=== PATIENT | male | born 1975 | race Two or more races ===

== ENCOUNTER 2024-09-03 23:36 | Emergency (ER) | payer MEDICAID, SELFPAY ==
[2024-09-03 23:37] VITALS: BMI 25.1
[2024-09-03 23:46] VITALS: BP 161/91; PULSE 88; RESP 18; TEMP 36.6; O2SAT 99
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
[2024-09-04] MEDS: TETRACAINE PF OP SOL 0.5% 4 ML DRPETTE 1 DROP LEFT EYE (00:14)
[2024-09-04] MEDS: Erythromycin Op Oint 0.5% 1 GM PACKET LEFT EYE (00:36)
[2024-09-04 00:43] VITALS: PULSE 82; RESP 18; TEMP 36.4; O2SAT 94
== END 2024-09-04 01:40 | disposition home or self-care (01) ==
LOC: SERX 09-04 01:21
PROVIDERS: Emergency Provider Emergency Medicine; PCP Nurse Practitioner Family
DX: T26.12XA Burn of cornea and conjunctival sac, left eye, initial encounter (principal); X12.XXXA Contact with other hot fluids, initial encounter; Y93.G3 Activity, cooking and baking; I25.10 Atherosclerotic heart disease of native coronary artery without angina pectoris; I25.2 Old myocardial infarction
CPT/HCPCS: 99283; A9270

== ENCOUNTER 2025-05-15 16:14 | Emergency (ER) | payer MEDICAID, SELFPAY ==
[2025-05-15 16:14] VITALS: BMI 24.3
[2025-05-15 16:21] VITALS: BP 161/81; PULSE 85; RESP 18; TEMP 36.6; O2SAT 100
--- NOTE | 2025-05-15 16:36 | XR_ITS ---
Examination: CT abdomen and pelvis without contrast. Coronal 3-D reconstructions. Sagittal 2-D reconstructions. Date and time of exam: May 15, 2025, 1733 hours, comparison 02/13/2023 INDICATIONS: Onset abdominal pain today CTDI: vol (mGy): 5.19 DLP: (mGycm): 299 Technique: Axial images of the abdomen have been obtained, 3 mm slice thickness Intravenous contrast material has not been administered. Low dose protocols were performed. One or more of the following dose reduction techniques were used; automated exposure control, adjustment of the mA and/or KV according to patient size, use of iterative reconstruction technique. Findings: No focal liver or splenic lesion No gallstones No pancreatic or adrenal mass No renal or ureteral calculi, no hydronephrosis Aorta normal size Normal appendix No bowel obstruction Scattered colonic diverticulosis, no diverticulitis No prostatomegaly Contracted urinary bladder Right inguinal hernia containing small bowel but no incarcerated bowel or bowel obstruction Moderate osteopenia, moderate disc narrowing L5-S1 IMPRESSION: No renal or ureteral calculi Normal appendix No bowel obstruction Right inguinal hernia containing small bowel but no incarcerated bowel
--- NOTE | 2025-05-15 16:39 | PD.EDRME ---
Rapid Medical Screening Exam RME Arrival date/time: 05/15/25 16:14 49-year-old male presents Emergency Department today for complaints of lower abdominal pain Chief Complaint: Abdominal Pain Vital signs: Vital Signs Temperature 97.8 F 05/15/25 16:21 Pulse Rate 85 05/15/25 16:21 Respiratory Rate 18 05/15/25 16:21 Blood Pressure 161/81 H 05/15/25 16:21 Pulse Oximetry (%) 100 05/15/25 16:21 Oxygen Delivery Method Room Air 05/15/25 16:21 Vital signs reviewed by provider: Yes Exam: On exam patient well-appearing does not appear ill or toxic patient does have pain in the lower abdomen and pelvic region patient reports history of hernia Clinical Impression: Labs imaging ordered
[2025-05-15 17:39] LABS: Basophils # (Auto) 0.0 Thou/mm3 (0.0-0.2); Basophils % (Auto) 0 % (0-2.5); Eosinophils # (Auto) 0.2 Thou/mm3 (0.0-0.5); Eosinophils % (Auto) 3 % (0-10); Hematocrit 41.3 % (41.0-53.0); Hemoglobin 13.4 g/dL (13.5-16.0); Immature Granulocytes Auto 0.05 Thou/mm3 (0.00-0.00); Lymphocytes # (Auto) 1.9 Thou/mm3 (1.0-4.8); Lymphocytes % (Auto) 26 % (10-50); Mean Corpuscular HGB Conc 32.4 g/dl (31.0-37.0); Mean Corpuscular Hemoglobin 30.0 pg (25.0-35.0); Mean Corpuscular Volume 92 fL (80-100); Monocytes # (Auto) 0.7 Thou/mm3 (0.0-0.8); Monocytes % (Auto) 10 % (0-12); Neutrophils # (Auto) 4.3 Thou/mm3 (1.8-7.7); Neutrophils % (Auto) 60 % (37-80); Nucleated Red Blood Cell # 0.00 Thou/mm3 (0.00-0.00); Nucleated Red Blood Cell % 0 /100 WBC (0); Platelet Count 469 Thou/mm3 (140-440); RDW Standard Deviation 40.4 fL (35.1-43.9); Red Blood Count 4.47 Miln/mm3 (4.50-5.90); White Blood Count 7.2 Thou/mm3 (3.8-10.6)
[2025-05-15 17:43] LABS: Collection Type, Urine Clean Catch; Squamous Epithelial Cell,Urine 0 /hpf (0-5)
[2025-05-15 17:49] LABS: Alanine Aminotransferase 32 U/L (10-49); Albumin, Serum 4.5 gm/dL (3.5-5.0); Albumin/Globulin Ratio 1.5 (1.2-2.2); Alkaline Phosphatase 129 U/L (46-116); Anion Gap 8 (7-16); Aspartate Amino Transferase 25 U/L (0-34); BUN/Creatinine Ratio 15 Ratio (12-20); Bilirubin,Total 0.3 mg/dL (0.3-1.2); Blood Urea Nitrogen 15 mg/dL (9-23); Calcium 8.8 mg/dL (8.3-10.6); Calcium (Corrected) 8.8 mg/dL (8.5-10.1); Carbon Dioxide 28.9 mMol/L (20.0-31.0); Chloride 106 mMol/L (98-107); Creatinine (Component) 1.0 mg/dL (0.6-1.3); Estimated Creatinine Clearance 94.3 mL/min (>60); Globulin 3.0 gm/dL (2.3-3.5); Glucose 123 mg/dL (74-106); Lipase 37 U/L (12-53); Osmolality,Calculated 286 (275-295); Potassium 4.2 mMol/L (3.4-5.1); Sodium 143 mMol/L (136-145); Total Protein 7.5 gm/dL (5.7-8.2); eGFR > 60 See Note
[2025-05-15 17:52] LABS: Bilirubin,Urine Negative (Negative); Blood,Urine Negative (Negative); Clarity,Urine Clear (Clear/Hazy); Color,Urine Lt-Yellow (Lt Yel-Yel); Culture Indicated,Urine Not Indicated; Glucose, Urine Negative (Negative); Ketones,Urine Negative (Negative); Leukocyte Esterase,Urine Negative (Negative); Nitrite,Urine Negative (Negative); PH,Urine 6.0 (5.0-7.0); Protein,Urine Negative (Neg - Trace); RBC,Urine 2 /hpf (0-3); Specific Gravity,Urine 1.028 (1.001-1.035); Urobilinogen,Urine Negative mg/dL (0.0-1.0); WBC,Urine < 1 /hpf (0-5)
--- NOTE | 2025-05-15 18:46 | EDNOTE_ITS ---
ED General RME/HPI General Chief complaint: Abdominal Pain Stated complaint: Abd pain Time Seen by Provider: 05/15/25 18:15 Arrival date/time: 05/15/25 16:14 RME / HPI RME / HPI narrative: 05/15/25 16:14 49-year-old male presents Emergency Department today for complaints of lower abdominal pain Exam: On exam patient well-appearing does not appear ill or toxic patient does have pain in the lower abdomen and pelvic region patient reports history of hernia Impression: Labs imaging ordered Related Data Home Medications ?Medication ?Instructions ?Recorded ?Confirmed albuterol sulfate 90 mcg/actuation 2 puff inhalation Q ID PRN 01/19/24 01/19/24 aerosol inhaler Shortness Of Breath Or Wheez ing Previous Rx's ?Medication ?Instructions ?Recorded erythromycin 5 mg/gram (0.5 %) eye 0.5 inch ophthalmic (eye) QID #3.5 09/04/24 ointment grams Allergies Allergy/AdvReac Type Severity Reaction Status Date / Time No Known Allergies Allergy Verified 05/15/25 16:15 ED Exam Narrative Physical exam: Physical Exam: GENERAL: Awake, answering questions appropriately, appears stated age HEENT: NC/AT. Moist mucosa. PERRLA/EOMI. CARDIO: Heart RRR, no obvious murmurs, no JVD. PULM: No coughing or visible SOB. Lungs CTA B/L. GI: Right inguinal hernia non-incarcerated, diffusely tender on palpation. Abdomen otherwise soft, NT/ND, borborygmi apparent. SKIN/MSK/EXT: No wounds/discoloration/rashes/edema/amputations. +Pedal pulses present B/L. NEURO: Oriented x3, Moves extremities x4, no focal neurologic deficits noted Course Quality Measures none Orders Category Date Time Status CT abdomen pelvis wo con Stat Exams 05/15/25 16:36 Completed CBC Stat Lab 05/15/25 17:10 Completed Comprehensive Metabolic Panel Stat Lab 05/15/25 17:10 Completed Lipase Stat Lab 05/15/25 17:10 Completed UA, C/S IF [Urinalysis, C/S if Indicated] Stat Lab 05/15/25 17:36 Completed Morphine* Inj Med 05/15/25 18:43 Discontinued 2 mg IVP X1 ONE Morphine* Inj Med 05/15/25 18:52 Discontinued 4 mg IM X1 ONE Vital Signs Vital signs: Vital Signs Temperature 97.8 F 05/15/25 16:21 Pulse Rate 85 05/15/25 16:21 Respiratory Rate 18 05/15/25 16:21 Blood Pressure 161/81 H 05/15/25 16:21 Pulse Oximetry (%) 100 05/15/25 16:21 Oxygen Delivery Method Room Air 05/15/25 16:21 PROCEDURES: Procedure Comment Consent: Verbal consent obtained. Risks and benefits: risks, benefits and alternatives were discussed Consent given by: patient Patient understanding: patient states understanding of the procedure being performed Patient consent: the patient understanding of the procedure matches consent given Patient identity confirmed: verbally with patient and arm band Time out: Immediately prior to procedure a time out was called to verify the correct patient, procedure, equipment, operations support representative and site/side marked as required. Location details: R-inguinal hernia Reduction Procedure: Direct pressure, constant Results: After procedure, fully reduced. No TTP. Both scrotum palpated, descended Complication: Tolerated well without complication. Discharge Plan Plan Patient Disposition: HOME (Self Care) Discharge Disposition comment: Please use the belt provided to keep hernia from re-herniating Follow-up with your PCP within 2 days and ask for a general surgery referral Use [id number] Tylenol and Ice-packs for pain management Patient condition on transfer: Stable Prescriptions/Referrals Prescriptions/Med Rec: No Action albuterol sulfate 90 mcg/actuation Hfa Aerosol Inhaler 2 puff INHALATION QID PRN (Reason: Shortness Of Breath Or Wheezing) Patient Comments: HAVE NOT USED IN A LONG TIME erythromycin 5 mg/gram (0.5 %) ointment 0.5 inch ophthalmic (eye) QID Qty: 3.5 0RF Referrals: Higinio Garza MD [Primary Care Provider, Family Practice] - In 1 week Problem List Clinical Impression: Inguinal hernia Patient/Caregiver Discharge Instructions Education Materials: ED Hernia (Adult) Print Language: Portuguese Stand Alone Forms: Elisabeth Award Info., Patient Portal Info Letter Attestation Attestation I, Dr. Boles, have reviewed the history, exam, and assessment of the patient. I have evaluated the patient independently and agree with the plan of care documented by the resident Dr. Back. All diagnostic studies were reviewed and discussed. I confirm the diagnosis as documented by the resident. I was present during the Medical Decision Making for this patient. The patient?s plan of care was created between myself and the resident and consistent with our discussion of the patient?s case. MDM Narrative MDM hospital course (for use when minimal MDM required): HPI: 49-year-old male with past medical history of asthma, polysubstance abuse including methamphetamine and marijuana presenting to the ED on 05/15 with abdominal pain located in the right lower quadrant area. Patient states that for the past year or so he has been having abdominal pain related to a inguinal hernia but decided to come in today because the pain was unbearable. He denies having any concerning symptoms such as fever/chills, nausea/vomiting/diarrhea, chest pain, shortness of breath, dizziness, melena, hematochezia or hematemesis. On examination please refer to the physical exam findings stated above, patient was mildly hypertensive 161/81, heart rate of 85 respiratory rate of 18, afebrile satting 100 on room air. Laboratory findings were largely unremarkable other than mild normocytic anemia, thrombocytopenia of 4 and 69, CMP was largely unremarkable other than mild hyperglycemia 123, urinalysis was negative for any signs of infection. CT abdomen pelvis was largely unremarkable other than a right inguinal hernia containing small bowel but no incarcerated bowel or bowel obstruction #Right inguinal hernia As noted above, imaging findings confirmed presence of nonincarcerated right inguinal hernia Patient was given morphine 4 mg IM x 1 for pain control Procedure note as above Plan: Please use the belt provided to keep hernia from re-herniating Follow-up with your PCP within 2 days and ask for a general surgery referral Use [id number] Tylenol and Ice-packs for pain management Patient seen and assessed with attending Dr. Elvi Back, DO PGY-2 Internal Medicine - GME Medication Administration(s) Medication Administration History Discontinued Medications Morphine Sulfate (Morphine Sulf Inj 4 Mg/Ml Vial) 2 mg IVP X1 ONE Stop: 05/15/25 18:44 Last Admin: 05/15/25 19:24 Dose: Not Given Documented By: Non-Admin Reason: Cancelled by Provider Morphine Sulfate (Morphine Sulf Inj 4 Mg/Ml Vial) 4 mg IM X1 ONE Stop: 05/15/25 18:53 Last Admin: 05/15/25 19:22 Dose: 4 mg Documented By:
[2025-05-15 19:13] VITALS: BP 156/86; PULSE 79; RESP 18; O2SAT 98
[2025-05-15] MEDS: MORPHINE SULF INJ 4 MG/ML VIAL IM (19:22)
== END 2025-05-15 20:15 | disposition home or self-care (01) ==
PROVIDERS: Nurse Practitioner Primary Care; Emergency Provider Emergency Medicine; PCP Family Medicine
DX: K40.90 Unilateral inguinal hernia, without obstruction or gangrene, not specified as recurrent (principal)
CPT/HCPCS: 36415; 74176; 80053; 81001; 83690; 85025; 96372; 99283; J2270